=== PATIENT | male | born 1975 | race Hispanic/Latino ===

== ENCOUNTER 2021-08-13 10:58 | Emergency (ER) | payer OTHER ==
[2021-08-13] MEDS ORDERED: TETANUS,DIPH,PERTUSS(ACELL) VACCINE 0.5 ML SYRINGE IM ONE (12:53)
--- NOTE | 2021-08-13 13:36 | Emergency Department Report ---
ED General Adult HPI - General Chief complaint: Wound/Laceration Stated complaint: LACERATION RT HAND Time Seen by Provider: 08/13/21 12:46 Source: EMS Mode of arrival: Stretcher Limitations: No Limitations - History of Present Illness Initial comments: 46 y/o left hand dominant male patient presents to emergency department with complaints of an accidental laceration to his right hand occurring earlier today. Patient states he cut himself while using a box attacher. Tetanus is not up-to-date. Denies paresthesias, numbness, weakness, foreign body sensation. Denies all other complaints at this time. - Related Data Allergies Allergy/AdvReac Type Severity Reaction Status Date / Time No Known Allergies Allergy Verified 08/13/21 11:07 ED Review of Systems ROS: Stated complaint: LACERATION RT HAND Other details as noted in HPI Other: GENERAL: Negative for fever. CARDIOVASCULAR: Negative for chest pain. PULMONARY: Negative for shortness of breath. GASTROINTESTINAL: Negative for abdominal pain. MUSCULOSKELETAL: Negative for back pain. NEUROLOGICAL: Negative for headache. INTEGUMENTARY: Positive for laceration. ED Physical Exam - General Limitations: No Limitations - Other Other exam information: General: Awake, appropriately interactive, no acute distress. Neck: Supple. Full range of motion intact. Cardiovascular: Normal peripheral perfusion. Pulmonary: No respiratory distress. Patient is speaking normally without use of accessory muscles. Skin: 2 cm vertical laceration involving skin, subcutaneous tissue, and muscle to the lateral aspect of the base of the right thumb. Active and passive range of motion is painful but intact in all directions with and without resistance. No tendon injury visualized. Bleeding is controlled. Wound is not grossly contaminated. No evidence of retained foreign body. Distal neurovascular motor/sensory function intact. Neurological: No facial asymmetry. Speech is clear. Follows commands. Patient is alert and oriented. Musculoskeletal: Moves all four extremities spontaneously with normal range of motion. Psych: Cooperative. Appropriate mood and affect. - Procedure Description Procedures done: Verbal consent was obtained from the patient. The site was identified. The area was prepped and draped. Hand hygiene was observed. The wound was cleansed with saline and Betadine. The wound was irrigated extensively. The wound was explored for foreign body. No foreign body was found. Local anesthetic was used. Approximately 6 mL of lidocaine 1% were infiltrated along wound edges. Four 3-0 Prolene sutures were placed in a simple interrupted fashion. Antibiotic ointment applied. Dressing applied. Kan wrap applied. Patient tolerated procedure well without complications. ED Medical Decision Making - Medical Decision Making Differential diagnosis including but not limited to: laceration, abrasion, tendon injury, neurovascular injury On reevaluation, patient remains stable. Repeat neurovascular exam remains intact. Tetanus updated. Patient tolerated laceration repair without complications. See procedure note for details. Physical exam demonstrates increased pain with active range of motion. It was explained to the patient that although no tendon injury was directly visualized, he would need to follow- up with a hand specialist for reevaluation. Referral provided. Patient expressed understanding and is agreeable to plan of care. Wound care precautions discussed. Strict return precautions provided. Repeat exam is unremarkable and benign. History, exam, diagnostic testing, and current condition do not suggest worrisome pathology to warrant further testing, continued ED treatment, admission, or surgical evaluation at this point. Given the low probability of a significant medical illness, it would be more likely to result in harm than benefit to perform further testing at this stage. Discussed findings, presumptive diagnosis, need for follow-up and specific signs/symptoms that should prompt immediate return to the emergency department. Instructions were explained in detail to the patient in addition to giving written discharge information. Patient expressed understanding and was given the opportunity to ask questions, all of which were satisfactorily answered prior to discharge home. Critical care attestation.: If time is entered above; I have spent that time in minutes in the direct care of this critically ill patient, excluding procedure time. ED Disposition Clinical Impression: Laceration of hand Qualifiers: Encounter type: initial encounter Foreign body presence: without foreign body Laterality: right Qualified Code(s): S61.411A - Laceration without foreign body of right hand, initial encounter Disposition: HOME / SELF CARE / HOMELESS Is pt being admited?: No Does the pt Need Aspirin: No Condition: Stable Instructions: Sutured Wound Care, [id number] Additional Instructions: Take Tylenol every 4 hours and Motrin every 8 hours as needed for pain. Apply antibiotic ointment to affected area 3 times daily. Keep wound clean and covered. Change dressing daily. Follow-up with hand specialist this week. Call tomorrow to schedule an appointment. See referral information below. Follow-up with primary care provider or hand specialist for suture removal in 10-14 days. Call tomorrow to schedule appointment. Return to the emergency department immediately for new or worsening symptoms. Specifically, return to the emergency department immediately for increased pain, worsening swelling, redness, purulent drainage, skin color changes, numbness, paralysis, or any other concerns. [facility] [email or web address] multiple locations - call to schedule appointment Referrals: LEXX ROGERS MD [Staff Physician] - 3-5 Days Forms: Work/School Release Form(ED) Time of Disposition: 14:39
[2021-08-13] MEDS ORDERED: NEOMY 3.5 MG/BACIT 400 UNITS/POLY B 5000 UNITS/GM OINT PACKET TP ONE (14:39)
== END 2021-08-13 15:28 | disposition home or self-care (01) ==
LOC: ED 10:58
DX: S61.411A Laceration without foreign body of right hand, initial encounter (principal); W25.XXXA Contact with sharp glass, initial encounter; Y93.89 Activity, other specified; Y92.89 Other specified places as the place of occurrence of the external cause; Y99.8 Other external cause status
CPT/HCPCS: 12001; 90471; 90715; 99283; A6250